=== PATIENT | female | born 1945 | race Caucasian/White ===

== ENCOUNTER 2017-06-11 19:47 | Emergency (ER) | payer MEDICARE ==
[~2017-06-11] VITALS: Ht 165.1 cm; Wt 59.0 kg
[~2017-06-11 19:47] MED LIST: ACET325 PO; ATOR20 PO; HYDCHL12.5 PO; Multiple Vitam1 EAC1 PO; VITAMIN E100 UNI1; Vitamin C100 M1
[2017-06-11] MEDS ORDERED: Crutch1 EACH MISC (22:28)
== END 2017-06-11 22:51 | disposition home or self-care (01) ==
LOC: ER 19:47
DX: S82.62XA Displaced fracture of lateral malleolus of left fibula, initial encounter for closed fracture (principal); I10 Essential (primary) hypertension; E78.00 Pure hypercholesterolemia, unspecified; Z79.899 Other long term (current) drug therapy; Z87.891 Personal history of nicotine dependence; Z90.89 Acquired absence of other organs; Z90.712 Acquired absence of cervix with remaining uterus; X58.XXXA Exposure to other specified factors, initial encounter; Y92.002 Bathroom of unspecified non-institutional (private) residence as the place of occurrence of the external cause
CPT/HCPCS: 29515; 73610; 99283